=== PATIENT | male | born 1980 | race Caucasian/White ===

== ENCOUNTER 2020-08-26 15:29 | Outpatient (CLI) | payer OTHER, SELFPAY ==
--- NOTE | ~2020-08-26 | US_ITS ---
EXAMINATION: US carotid duplex BI DATE: 08/26/2020 16:10 INDICATION: Carotid artery stenosis/occlusion TECHNIQUE: Grayscale, color Doppler, and pulsed Doppler images of the cervical carotid arteries were obtained. The degree of vessel stenosis is placed in one of the following categories: normal, <50%, 5 0-69%, >=70% but less than near-occlusion, near-occlusion, or total occlusion. Note that percent sten osis relative to normal distal artery lumen diameter is indirectly measured from velocity measurement s as described by Rajiv, et al. Radiology 2003; 229:340-346. COMPARISON: None. FINDINGS: RIGHT: The right common carotid artery (CCA) peak systolic velocity (PSV) is 103 cm/s. The right internal ca rotid artery (ICA) PSV is 59 cm/s. The right ICA end-diastolic velocity (EDV) is 9 cm/s. The right IC A/CCA PSV ratio is 0.6. Grayscale and color Doppler images yield an estimate of <50% diameter reducti on from minimal plaque in the ICA. The external carotid artery (ECA) PSV is 67 cm/s. There is antegra de flow in the right vertebral artery. LEFT: The left CCA PSV is 128 cm/s. The left ICA PSV is 70 cm/s. The left ICA EDV is 13 cm/s. The left ICA/ CCA PSV ratio is 0.5. Grayscale and color Doppler images yield an estimate of <50% diameter reduction from minimal plaque in the ICA. The ECA PSV is 110 cm/s. There is antegrade flow in the left vertebr al artery. IMPRESSION: 1. <50% stenosis from minimal plaque in the right internal carotid artery. 2. <50% stenosis from minimal plaque in the left internal carotid artery. Reviewed, dictated and finalized at location A.
== END 2020-08-26 15:30 | disposition home or self-care (01) ==
PROVIDERS: PCP Family Medicine; Visit Provider Physician Assistant
DX: I65.23 Occlusion and stenosis of bilateral carotid arteries (principal)
CPT/HCPCS: 93880

== ENCOUNTER → 2020-11-06 01:14 | Outpatient (CLI) | payer OTHER, SELFPAY ==
[2020-11-06 19:37] LABS: SARS-CoV-2 RNA PCR Negative
== END ==
PROVIDERS: PCP Family Medicine; Visit Provider Internal Medicine Cardiovascular Disease
DX: Z01.812 Encounter for preprocedural laboratory examination (principal); Z20.822 Contact with and (suspected) exposure to COVID-19
CPT/HCPCS: C9803; U0003; U0005

== ENCOUNTER 2020-11-10 01:48 | Day surgery (SDC) | payer OTHER, SELFPAY ==
[2020-11-10] VITALS (13 sets, daily range): BP systolic 131–158; BP diastolic 52–77; PULSE 62–100; RESP 12–18; TEMP 36.4; O2SAT 97–100; BMI 24.3
--- NOTE | 2020-11-10 11:15 | WPDTEECHO ---
[facility] TransEsophageal Echocardiogram Date of procedure: 11/10/20 Procedure Type: Brief history present illness: Patient is a pleasant 40-year-old male with a past medical history significant for remote hypertension, palpitations with PVCs with complaints of intermittent fatigue found to have prominent diastolic murmur confirmed consistent with severe aortic regurgitation a possible bicuspid aortic valve, severe LV enlargement with moderate LV dysfunction referred for transesophageal echocardiogram for further evaluation. Procedure in detail: After verbal and written informed consent was obtained the patient risks, benefits, and alternatives explained in detail the patient agreed to proceed with the plan of care as outlined above. The patient was evaluated at bedside in the [facility] procedure room. The posterior oropharynx, neck, and jaw angle all within normal limits on examination. Lungs were clear to auscultation. See pre-sedation note for further details The patient was then placed in the appropriate 30 to 45 degree angle supine position at a slight left lateral decubitus position. Patient was monitored throughout the study with telemetry, oxygen saturation, end-tidal CO2 monitoring, blood pressure, heart rate, and respirations. The posterior hypopharynx was then locally anesthetized using repeated administration of Hurricaine spray as well as gargled viscous lidocaine. After local anesthetic of the posterior hypopharynx was achieved and the oral bite block placed, moderate sedation was administered. After confirmation of adequate moderate sedation, the transesophageal echocardiogram probe was advanced through the oral bite block into the posterior hypopharynx and into the esophagus easily and without complication. Multiple, multiplanar echocardiographic images were obtained in multiple standard re- projections. Pulsed wave, continuous-wave, and color-flow Doppler were utilized in conjunction with this study. At the conclusion of the study, the transesophageal echocardiogram probe was removed easily and without complication. The patient tolerated the procedure well without difficulty. Patient was in sinus rhythm throughout the study. Moderate Sedation/Anesthesia administration: Patient reports no prior problems with sedation/anesthesia. Please see pre-sedation noted for physical examination documentation. As noted above, after adequate local anesthesia of the posterior hypopharynx was achieved, a total of 4 mg intravenous Versed and a total of 100 mcg intravenous Fentanyl in multiple divided doses was administered for moderate sedation. Sedation start time was 1022 and end time was 1040 for a total intra-service/procedure face-face time of 18 minutes. Sedation was administered by a qualified/certified observer Rosalva Calixto, RN under my supervision with intra-procedure [id number] observation and management throughout the entirety of the procedure. There were no other issues or complications and patient tolerated the procedure well. See post-anesthesia documentation. Diagnosis: Congenital bicuspid aortic valve with severe aortic regurgitation, LV dysfunction Indications: Congenital bicuspid aortic valve with severe aortic regurgitation, LV dysfunction Image Quality: Acceptable Findings: LEFT VENTRICLE: Severe left ventricular enlargement with [id number] LV systolic dysfunction ejection fraction visually estimated at 45%, LVEDD 7.0cm. RIGHT VENTRICLE: Size and systolic function are normal. LEFT ATRIUM: Normal size. RIGHT ATRIUM: Normal size. INTERATRIAL SEPTUM: Interatrial septum is anatomically normal without evidence of shunt with color-flow Doppler nor with injection of agitated saline. MITRAL VALVE: Mitral valve is anatomically normal with preserved leaflet excursion and mild regurgitation. AORTIC VALVE: The aortic valve is a congenital bicuspid valve with leaflets at the 10 0'clock and 4 o'clock positions and evide
--- NOTE | 2020-11-10 12:14 | SUR.PHASEII ---
All D/C instructions reviewed and questions answered.
--- NOTE | 2020-11-10 13:18 | WPDHPUPDATE1 ---
History and Physical Update Update Date/Time: 11/10/20 13:18 History and Physical has been reviewed, including an updated exam of the patient. There are NO changes in the patient's condition. Risks, benefits, and alternatives have been discussed and questions answered. Patient agrees to proceed with procedure.
== END 2020-11-10 11:45 | disposition home or self-care (01) ==
PROVIDERS: PCP Family Medicine; Visit Provider Internal Medicine Cardiovascular Disease
PROC: (CPT 93312; principal; 2020-11-10 10:00)
DX: Q23.1 Congenital insufficiency of aortic valve (principal); R93.1 Abnormal findings on diagnostic imaging of heart and coronary circulation
CPT/HCPCS: 93312; 93320; 93325; C9803; J2250; J3010; J7040; U0003; U0005

== ENCOUNTER 2021-04-27 07:15 | Outpatient (RCR) | payer OTHER, SELFPAY | END 2021-04-27 08:49 | disposition home or self-care (01) | LOC: ANHCPREHAB 07:15 | PROVIDERS: PCP Family Medicine; Visit Provider Internal Medicine Cardiovascular Disease | DX: Z95.2 Presence of prosthetic heart valve (principal) | CPT/HCPCS: 93798 ==

== ENCOUNTER 2023-10-08 10:02 | Emergency (ER) | payer OTHER, SELFPAY ==
--- NOTE | ~2023-10-08 | CT_ITS ---
EXAMINATION: CTA chest PE protocol DATE: 10/08/2023 11:29 INDICATION: Chest pain and shortness of breath TECHNIQUE: Computed tomography (CT) pulmonary angiogram of the chest was performed with 100 mL Omnipa que-350 intravenous contrast. Additional 3D reconstructions utilizing coronal maximum intensity proje ction (MIP) were performed. Automated exposure control and iterative reconstruction technique were em ployed. The dose-length product was 362.99 mGy-cm. COMPARISON: None FINDINGS: No pulmonary embolism. No pneumonia, pulmonary edema or other pulmonary infiltrates. Calcified nodule s in the bilateral lower lobes the largest on the left along with calcified mediastinal and left nancy r lymph nodes consistent with old granulomatous disease. No pleural effusion. Heart size is normal. N o pericardial effusion. Postoperative change of prior median sternotomy and aortic valve repair. Thor acic aorta is normal in caliber with no dissection. No pathologically enlarged thoracic lymphadenopat hy. Visualized upper abdomen is unremarkable. Mild thoracic levocurvature with mild spondylosis. IMPRESSION: 1. No pulmonary embolism or other acute cardiopulmonary disease. Reviewed, dictated and finalized at location A.
--- NOTE | ~2023-10-08 | XR_ITS ---
EXAMINATION: XR chest 2V DATE: 10/08/2023 10:42 INDICATION: Chest pressure. TECHNIQUE: Frontal and lateral views of the chest were obtained. COMPARISON: None. FINDINGS: A calcified left lung nodule and calcified left hilar lymph nodes are consistent with old g ranulomatous disease. No pleural effusion or pneumothorax. The heart size is normal. There are change s of heart valve replacement. IMPRESSION: 1. No acute cardiopulmonary disease. Reviewed, dictated and finalized at location A.
--- NOTE | 2023-10-08 10:03 | ECG_ITS ---
SEE SCANNED COPY FOR CONFIRMED REPORT MTDD
[2023-10-08 10:13] VITALS: BP 130/82; PULSE 60; PULSE 62; RESP 20; TEMP 36.4; O2SAT 98
[2023-10-08] MEDS: ASPIRIN 81 MG CHEWABLE TABLET 324 MG PO (10:22)
--- NOTE | 2023-10-08 10:24 | PC.NURSE ---
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
[2023-10-08 10:33] LABS: Basophils Percent Auto 0.6 % (0.2-1.2); Eosinophils Absolute Auto 0.2 K/mm3 (0-0.3); Eosinophils Percent Auto 3.1 % (0-4.4); Hemoglobin 15.1 g/dL (14.0-18.0); Immature Granulocyte Absolute 0.02 K/mm3 (0.00-0.031); Immature Granulocyte Percent A 0.3 % (0-0.5); Lymphocytes Absolute Auto 1.81 K/mm3 (0.9-3.2); Lymphocytes Percent Auto 27.7 % (18.3-44.2); Mean Corpuscular HGB Conc 32.8 g/dl (32-36); Mean Corpuscular Hemoglobin 32.3 pg (26-34); Mean Corpuscular Volume 98.5 fl (80-100); Mean Platelet Volume 10.4 fl (7.4-10.4); Monocytes Absolute Auto 0.5 K/mm3 (0.1-0.6); Monocytes Percent Auto 7.2 % (2.6-8.5); Neutrophils Percent Auto 61.1 % (45.5-73.1); Platelet Count Result 218 k/mm3 (150-375); Red Blood Count 4.67 M/mm3 (4.6-6.20); Red Cell Distribution Width 12.9 % (11.5-14.5); White Blood Count 6.5 K/mm3 (4.5-10.0)
[2023-10-08 10:46] LABS: Alanine Aminotransferase 28 U/L (6-50); Albumin Level 4.3 g/dL (3.5-5.1); Alkaline Phosphatase 74 U/L (38-126); Anion Gap 4 mmol/L (4-12); Aspartate Amino Transferase 24 U/L (17-59); Bilirubin,Total 0.7 mg/dL (0.2-1.3); Blood Urea Nitrogen 19 mg/dL (9-20); Calcium 9.5 mg/dL (8.4-10.2); Carbon Dioxide 31 mmol/L (22-30); Chloride 104 mmol/L (98-107); Estimated CRCL calculation 110 ml/min; Estimated Glomerular Filt Rate > 60; Glucose 77 mg/dL (65-110); Lipase 108 U/L (23-300); Potassium 3.9 mmol/L (3.4-5.0); Sodium 139 mmol/L (137-145)
[2023-10-08 10:46] LABS: Prothrombin Time 13.3 Seconds (11.1-14.7)
[2023-10-08 10:47] LABS: Partial Thromboplastin Time 22.4 Seconds (22.3-36.8)
[2023-10-08 10:55] LABS: Troponin I < 0.012 ng/mL (0.000-0.034)
--- NOTE | 2023-10-08 11:09 | ED.CHESTPAIN ---
HPI - Chest Pain General Chief Complaint: Chest Pain Stated Complaint: CP Time Seen by Provider: 10/08/23 10:16 History of Present Illness HPI narrative: 43-year-old male present to the emergency department for evaluation of chest pressure that started last night while he was making dinner. She Patient states symptoms persisted throughout the night, patient states the pain feels like ?inflammation?. Patient states he did take ibuprofen and this helped his symptoms last night. Patient does have history of aortic valve repair and 2020 at [facility]. Patient denies any history of coronary artery disease. This morning patient was exerting himself and felt a worsening of the symptoms so he called his primary care physician and was referred to the emergency department for further workup. Related Data Home Medications Medication Instructions Recorded Confirmed aspirin 81 mg tablet,delayed 81 mg PO HS 11/10/20 10/08/23 release cetirizine 10 mg tablet (Zyrtec) 10 mg PO DAILY 11/10/20 10/08/23 cholecalciferol (vitamin D3) 125 125 mcg PO DAILY 11/10/20 10/08/23 mcg (5,000 unit) tablet (Vitamin D3) fluticasone propionate 50 2 spray intranasal DAILY 11/10/20 10/08/23 mcg/actuation nasal spray,suspension ftzzzjvt-tbziqqvt-qiitq acid 400 1 tablet PO DAILY 11/10/20 10/08/23 mcg-vit K 20 mcg-lycop 300 mcg tablet (One-A-Day Men's Multivitamin) acetaminophen 500 mg capsule 1,000 mg PO Q6H PRN Pain 02/08/21 10/08/23 Allergies Allergy/AdvReac Type Severity Reaction Status Date / Time NKDA Allergy Unknown Unknown Uncoded 10/08/23 10:18 NKFA Allergy Unknown unk Uncoded 10/08/23 10:18 Review of Systems Review of Systems: All systems reviewed & are unremarkable except as noted in HPI and below PMFSH Past Medical History Medical History H/O bicuspid aortic valve HLD (hyperlipidemia) Surgical History Surgical History S/P aortic valve replacement Family History Family History Father Diabetes mellitus Hypertension High cholesterol Mother Diabetes mellitus Heart disease Hypertension High cholesterol Social History Social History Smoking status: Never smoker Second hand tobacco smoke exposure: No Alcohol intake: current Drinks per week: 3 Substance use: never Substance use type: does not use Living arrangements: with family Occupation/Education: occupation Gender identity (if verbalized by the patient): Male Sexual Orientation (if Verbalized by the Patient): Straight or Heterosexual Exam Narrative: APPEARANCE: Well appearing, no pain, no distress, well-nourished. HEAD: normocephalic, atraumatic. EYES: PERRLA/EOMI, conjunctivae clear. NOSE: Normal no drainage NECK: Supple. No adenopathy, no masses. RESPIRATORY: Airway patent, respirations nonlabored. Clear to auscultation bilaterally, no rales, rhonchi, wheezing. CARDIOVASCULAR: Regular rate and rhythm without murmurs rubs or gallops. ABDOMINAL: Soft, nontender, nondistended, normal bowel sounds MUSCULOSKELETAL: Moves all extremities. Strength/ROM intact, No edema, No calf tenderness. NEURO: Alert. Cranial nerves II through XII intact. Grossly intact SKIN: Warm, dry. Normal Color Course Course Emergency Course: Patient felt improved with treatment and was discharged to home with outpatient follow-up with cardiology and his primary care physician. Vital Signs Vital signs: Vital Signs Temperature 97.6 F 10/08/23 10:13 Pulse Rate 62 10/08/23 10:13 Respiratory Rate 20 10/08/23 10:13 Blood Pressure 130/82 10/08/23 10:13 Pulse Oximetry 98 10/08/23 10:13 Oxygen Delivery Room Air 10/08/23 10:13 Temperature 97.6 F 10/08/23 10:13 Pulse Rate 60 10/08/23 15:52
[2023-10-08 12:01] VITALS: BP 122/73; PULSE 60; RESP 15; O2SAT 99
[2023-10-08 13:52] VITALS: BP 115/76; PULSE 56; RESP 14; O2SAT 99
--- NOTE | 2023-10-08 13:59 | ECG_ITS ---
SEE SCANNED COPY FOR CONFIRMED REPORT MTDD
[2023-10-08 14:28] LABS: Troponin I < 0.012 ng/mL (0.000-0.034)
[2023-10-08 15:25] VITALS: PULSE 54; RESP 20; O2SAT 100
[2023-10-08] MEDS: KETOROLAC 15 MG/ML VIAL (*BKC) IV PUSH (15:46)
[2023-10-08 15:52] VITALS: BP 110/69; PULSE 60; RESP 16; O2SAT 97
== END 2023-10-08 15:53 | disposition home or self-care (01) ==
PROVIDERS: Emergency Provider Emergency Medicine; PCP Family Medicine
DX: R07.9 Chest pain, unspecified (principal); E78.5 Hyperlipidemia, unspecified
CPT/HCPCS: 36415; 71046; 71275; 80053; 83690; 84484; 85025; 85610; 85730; 93005; 96374; 99284; A9270; J1885; Q9967